=== PATIENT | male | born 1950 | race Caucasian/White ===

== ENCOUNTER 2019-06-08 12:50 | Inpatient (IN) | payer OTHER ==
[~2019-06-08] VITALS: Ht 188 cm; Wt 92.6 kg
[2019-06-08 12:54] VITALS: BP 170/123
[2019-06-08 13:25] LABS: ABSOLUTE NEUTROPHILS 3.9 thou/uL (1.4-8.2); BASOPHILS 0.7 % (0.0-2.0); EOSINOPHILS 4.4 % (0.0-3.0); HEMATOCRIT 43.3 % (42.0-52.0); HEMOGLOBIN 14.6 gm/dL (14.0-18.0); LYMPHOCYTES 19.5 % (24.0-44.0); MCH 31.7 pg (26.0-34.0); MCHC 33.7 g/dL (28.0-37.0); MCV 94.1 fL (80.0-100.0); PLATELET COUNT 205 thou/uL (150-400); POLYS 66.4 % (36.0-66.0); RDW 14.8 % (10.5-14.5); WBC 5.9 thou/uL (4.0-11.0)
[2019-06-08 13:37] LABS: CALCIUM 9.4 mg/dL (8.5-10.1); CREATININE 0.9 mg/dL (0.7-1.3); POTASSIUM 4.1 mmol/L (3.5-5.1)
[2019-06-08 13:43] LABS: ALBUMIN 3.5 g/dL (3.4-5.0); TOTAL BILIRUBIN 0.2 mg/dL (<0.1-1.0); TOTAL PROTEIN 7.8 g/dL (6.4-8.2)
[2019-06-08 14:25] VITALS: BP 113/79
[2019-06-08] MEDS ORDERED: ZIPRASIDONE HCL20 M1 PO (14:58)
[2019-06-08] MEDS ORDERED: ATIVAN4 MG/1 ML IM (15:02)
[2019-06-08] MEDS ORDERED: NICOTINE TRANSD14 M1 TRANSDERM (15:05)
[2019-06-08] MEDS ORDERED: SERTRALINE HCL100 MG PO (15:08)
[2019-06-08] MEDS ORDERED: CLONIDINE HCL0.2 M2 PO (15:10)
[2019-06-08 15:34] VITALS: BP 170/103
[2019-06-08] MEDS ORDERED: SEROQUEL 25 MG25 M1 PO (16:04)
[2019-06-08 18:15] VITALS: BP 141/92
[2019-06-08 19:40] VITALS: BP 160/99
[2019-06-08 19:50] VITALS: BP 160/99
--- NOTE | 2019-06-08 23:29 | EKG ---
[facility] [address] [address] ELECTROCARDIOGRAM REPORT Name: Y[facility]HI HUBBARD [facility] M[facility] [id number] Admission: 06/08/19 Attend Phys: Kierra Briggs MD Discharge: Date of : 54 Report #: [id number] THIS REPORT FOR: cc: LINDA PARHAM MD Physician not on staff Esteban Anderson MD ~ THIS REPORT FOR: //name// [facility] Test Date: 2019-06-08 Test Time: 17:32:58 Pat Name: YOSHI HUBBARD Department: Room: [facility] Gender: M Senior Water Resources Engineer: Yan BEAR : 1950 Requested By: Kierra Briggs Order Number: [id number] MD: Esteban Anderson Measurements Intervals [place] Rate: 74 P: 39 VT: 145 QRS: 36 QRSD: 91 T: 39 QT: 389 QTc: 432 Interpretive Statements Sinus rhythm Minimal ST depression, lateral leads No previous ECG available for comparison Electronically Signed On 06-08-2019 23:28:09 CDT by Esteban Anderson [email or web address] <ELECTRONICALLY SIGNED> By: Esteban Anderson MD 06/08/19 [id number] Esteban Anderson MD /EPI
[2019-06-09] VITALS (10 sets, daily range): BP systolic 136–189; BP diastolic 80–118
[2019-06-09 06:48] LABS: PHOSPHORUS 4.3 mg/dL (2.5-4.9)
[2019-06-09 07:11] LABS: FOLIC ACID 7.4 ng/mL (8.6-58.9)
[2019-06-10 08:05] VITALS: BP 129/89
[2019-06-10] MEDS ORDERED: SERTRALINE HCL50 MG PO (12:19)
[2019-06-10] MEDS ORDERED: ONE DAILY MUL400 MCG PO (12:19)
[2019-06-10] MEDS ORDERED: SEROQUEL 25 MG25 M1 PO (12:19)
[2019-06-10] MEDS ORDERED: VISTARIL 25 MG25 M1 PO (12:19)
[2019-06-10] MEDS ORDERED: ADULT LOW DOSE81 MG PO (12:19)
[2019-06-10] MEDS ORDERED: PEPCID20 MG PO (12:19)
[2019-06-10] MEDS ORDERED: NICOTINE TRANSD21 M1 TRANSDERM (12:19)
[2019-06-10 13:16] VITALS: BP 129/89
[2019-06-10 19:21] VITALS: BP 150/97
[2019-06-10 22:21] VITALS: BP 150/97
[2019-06-11 07:24] VITALS: BP 129/89
[2019-06-11 07:49] VITALS: BP 150/94
[2019-06-11] MEDS ORDERED: HYDROCHLOROTHIA25 M1 PO (08:30)
[2019-06-11 08:40] VITALS: BP 150/94
== END 2019-06-11 09:45 | disposition home or self-care (01) | DRG 881 ==
LOC: ER 12:50 → SBH 14:35 → EROBS 14:35 → SBH 14:36
PROVIDERS: Emergency Medicine Emergency Medical Services; ADMIT Psychiatry & Neurology Psychiatry
DX: F32.9 Major depressive disorder, single episode, unspecified (principal); R45.851 Suicidal ideations; F10.239 Alcohol dependence with withdrawal, unspecified; F15.90 Other stimulant use, unspecified, uncomplicated; E78.00 Pure hypercholesterolemia, unspecified; I10 Essential (primary) hypertension; F17.210 Nicotine dependence, cigarettes, uncomplicated; R45.850 Homicidal ideations; Z86.73 Personal history of transient ischemic attack (TIA), and cerebral infarction without residual deficits
CPT/HCPCS: 10880